=== PATIENT | female | born 2000 ===

== ENCOUNTER 2023-01-21 23:39 | Emergency (ER) | payer OTHER ==
[~2023-01-21] VITALS: Ht 170.1 cm; Wt 101.4 kg
[2023-01-21] MEDS ORDERED: FAMOTIDINE INJ 20MG/2ML VIAL IV STA (23:52)
[2023-01-21] MEDS ORDERED: NS IV 1000 ML 1,000 ML IV STA (23:52)
--- NOTE | 2023-01-21 23:52 | ED GI ---
General Stated Complaint: ABD PAIN|VOMITING Source of Information: Patient Exam Limitations: No Limitations History of Present Illness Date Seen by Provider: Jan 21, 2023 Time Seen by Provider: 23:43 Initial Comments 22-year-old female with no pertinent past medical history coming in due to upper abdominal discomfort and vomiting. Started a few days ago, worsening over the past 24 hours. Has only vomited a few times nonbloody nonbilious. No diarrhea, fever, chest pain, shortness of breath, dysuria, hematuria, or any other concerns. The pain does radiate to her flanks and lower back somewhat. Otherwise denying any other acute complaints. LMP was 2 weeks ago. Allergies and Home Medications Allergies Coded Allergies: No Known Drug Allergies (Unverified , 01/21/23) Patient Home Medication List Home Medication List Reviewed: Yes Doxycycline Hyclate (Doxycycline Hyclate) 100 Mg Tablet, 100 MG PO BID Prescribed by: FRANCO PEREZ on 01/22/2345 Metronidazole (Metronidazole) 500 Mg Tablet, 500 MG PO BID Prescribed by: FRANCO PEREZ on 01/22/236 Review of Systems Review of Systems Constitutional: No fever EENTM: No Symptoms Reported Respiratory: No Symptoms Reported Cardiovascular: No Symptoms Reported Gastrointestinal: See HPI Genitourinary: No Symptoms Reported Musculoskeletal: no symptoms reported Skin: no symptoms reported Psychiatric/Neurological: No Symptoms Reported Endocrine: No Symptoms Reported Hematologic/Lymphatic: No Symptoms Reported Past Tocylen-Wnwgtp-Vnvbmj Hx Patient Social History Tobacco Use?: No Past Medical History Surgeries: Yes Appendectomy Physical Exam Vital Signs Vital Signs - First Documented 01/21/23 23:39 Temp 36.9 Pulse 130 Resp 18 B/P (MAP) 128/86 (100) Pulse Ox 97 O2 Delivery Room Air Capillary Refill : Height/Weight/BMI Height: '" Weight: lbs. oz. kg; BMI Method: General Appearance: WD/WN, no apparent distress HEENT: PERRL/EOMI, normal ENT inspection, pharynx normal Neck: non-tender, full range of motion, supple, normal inspection Respiratory: chest non-tender, lungs clear, normal breath sounds, no respi ratory distress, no accessory muscle use Cardiovascular: no edema, no murmur, tachycardia Gastrointestinal: normal bowel sounds, non tender, soft; No distended, No guarding, No rebound Extremities: normal range of motion, non-tender, normal inspection, no pedal edema, no calf tenderness, normal capillary refill Back: normal inspection, no CVA tenderness Neurologic/Psychiatric: no motor/sensory deficits, alert, normal mood/affect Skin: normal color, warm/dry Progress/Results/Core Measures Results/Orders Lab Results Laboratory Tests Test 01/21/23 23:39 01/21/23 23:52 Range/Units Urine Color YELLOW Urine Clarity CLOUDY Urine pH 6.0 5-9 Urine Specific [place] 1.025 H 1.016-1.022 Urine Protein NEGATIVE NEGATIVE Urine Glucose (UA) NEGATIVE NEGATIVE Urine Ketones NEGATIVE NEGATIVE Urine Nitrite NEGATIVE NEGATIVE Urine Bilirubin NEGATIVE NEGATIVE Urine Urobilinogen 0.2 < = 1.0 MG/DL Urine Leukocyte Esterase 1+ H NEGATIVE Urine RBC (Auto) 2+ H NEGATIVE Urine RBC 0-2 /HPF Urine WBC 5-10 H /HPF Urine Squamous Epithelial Cells 5-10 /HPF Urine Crystals NONE /LPF Urine Bacteria MODERATE H /HPF Urine Casts PRESENT /LPF Urine Hyaline Casts 0-2 H /LPF Urine Mucus LARGE H /LPF Urine Other CLUE CELLS NOTED /HPF Urine Culture Indicated YES White Blood Count 12.4 H 4.3-11.0 10^3/uL Red Blood Count 5.19 H 3.80-5.11 10^6/uL Hemoglobin 14.4 11.5-16.0 g/dL Hematocrit 43 35-52 % Mean Corpuscular Volume 84 80-99 fL Mean Corpuscular Hemoglobin 28 25-34 pg Mean Corpuscular Hemoglobin Concent 33 32-36 g/dL Red Cell Distribution Width 12.5 10.0-14.5 % Platelet Count 345 130-400 10^3/uL Mean Platelet Volume 9.5 9.0-12.2 fL Immature Granulocyte % (Auto) 0 % Neutrophils (%) (Auto) 61 42-75 % Lymphocytes (%) (Auto) 28 12-44 % Monocytes (%) (Auto) 6 0-12 % Eosinophils (%) (Auto) 4 0-10 % Basophils (%) (Auto) 1 0-10 % Neutrophils # (Auto) 7.6 1.8-7.8 10^3/uL Lymphocytes # (Auto) 3.5 1.0-4.0 10^3/uL Monocytes # (Auto) 0.8 0.0-1.0 10^3/uL Eosinophils # (Auto) 0.5 H 0.0-0.3 10^3/uL Basophils # (Auto) 0.1 0.0-0.1 10^3/uL Immature Granulocyte # (Auto) 0.0 0.0-0.1 10^3/uL Sodium Level 137 135-145 MMOL/L Potassium Level 3.7 3.6-5.0 MMOL/L Chloride Level 103 98-107 MMOL/L Carbon Dioxide Level 21 21-32 MMOL/L Anion Gap 13 5-14 MMOL/L Blood Urea Nitrogen 10 7-18 MG/DL Creatinine 0.76 0.60-1.30 MG/DL Estimat Glomerular Filtration Rate 115 BUN/Creatinine Ratio 13 Glucose Level 209 H 70-105 MG/DL Calcium Level 9.2 8.5-10.1 MG/DL Corrected Calcium 8.8 8.5-10.1 MG/DL Total Bilirubin 0.2 0.1-1.0 MG/DL Aspartate Amino Transf (AST/SGOT) 10 5-34 U/L Alanine Aminotransferase (ALT/SGPT) 14 0-55 U/L Alkaline Phosphatase 75 40-136 U/L C-Reactive Protein 0.78 H <0.50 MG/DL Total Protein 7.8 6.4-8.2 GM/DL Albumin 4.5 3.2-4.5 GM/DL Lipase 18 8-78 U/L Influenza Type A (RT-PCR) Not Detected Not Detecte Influenza Type B (RT-PCR) Not Detected Not Detecte SARS-CoV-2 RNA (RT-PCR) Not Detected Not Detecte My Orders Orders - FRANCO PEREZ MD Urine Bedside (01/21/23 23:43) Ua Culture If Indicated (01/21/23 23:43) Cbc With Automated Diff (01/21/23 23:52) Comprehensive Metabolic Panel (01/21/23 23:52) Lipase (01/21/23 23:52) Influenza A And B By Pcr (01/21/23 23:52) Crp Fs (01/21/23 23:52) Ondansetron Injection (Ondansetron Inj (01/22/23 00:00) Ns Iv 1000 Ml (Ns Iv 1000 Ml) (01/21/23 23:52) Antacid Suspension (Antacid Suspension (01/22/23 00:00) Famotidine Injection (Famotidine Injec (01/21/23 23:52) Ed Iv/Invasive Line Start (01/21/23 23:52) Covid 19 Inhouse Test (01/21/23 23:52) Ketorolac Injection (Ketorolac Injection (01/22/23 00:00) Lidocaine 2% Viscous 15 Ml (Xylocaine Vi (01/22/23 00:00) Urine Culture (01/21/23 23:39) Neis Bret Dna Urine Test (01/22/23 00:30) Chlamydia Trachomatis Urine (01/22/23 00:30) Ceftriaxone Iv/Im (Ceftriaxone Iv/Im) (01/22/23 00:30) Metronidazole Tablet (Metronidazole Tabl (01/22/23 00:30) Doxycycline Hyclate Tablet (Doxycycline (01/22/23 00:30) Medications Given in ED Current Medications Medications Dose Ordered Sig/Delfina Route Start Time Stop Time Status Last Admin Dose Admin Al Hydrox/Mg Hydrox/Simethicone 30 ml ONCE ONCE PO 01/22/23 00:00 01/22/23 00:01 DC 01/22/23 00:11 30 ML Ceftriaxone Sodium 1000 mg/ Sodium Chloride 50 ml @ 100 mls/hr ONCE ONCE IV 01/22/23 00:30 01/22/23 00:59 01/22/23 00:42 100 MLS/HR Ketorolac Tromethamine 15 mg ONCE ONCE IVP 01/22/23 00:00 01/22/23 00:01 DC 01/22/23 00:11 15 MG Lidocaine HCl 15 ml ONCE ONCE PO 01/22/23 00:00 01/22/23 00:01 DC 01/22/23 00:11 15 ML Metronidazole 500 mg ONCE ONCE PO 01/22/23 00:30 01/22/23 00:31 DC 01/22/23 00:42 500 MG Ondansetron HCl 4 mg ONCE ONCE IVP 01/22/23 00:00 01/22/23 00:01 DC 01/22/23 00:11 4 MG Vital Signs/I&O 01/21/23 23:39 Temp 36.9 Pulse 130 Resp 18 B/P (MAP) 128/86 (100) Pulse Ox 97 O2 Delivery Room Air Progress Progress Note : Progress Note 22-year-old female with above history coming in due to abdominal discomfort and vomiting. ABCs were intact and vitals were stable on presentation other than she is tachycardic. An IV was placed and she was given a bolus of IV fluids as well as Toradol for pain control. She was given a GI cocktail as well as Zofran. Labs were significant for mild leukocytosis, slightly elevated CRP, normal creatinine, urinalysis with concerns for infection including bacterial vaginosis with clue cells. She be treated with ceftriaxone as well as oral antibiotics. On reassessment, abdominal exam once again reassuring with no signs of peritonitis. She has no focal tenderness anywhere, I think a CT would be unhelpful. Specifically, she has had her appendix out, and is not tender in her right lower quadrant, and is not tender in the right upper quadrant where her gallbladder is. I believe she is stable for discharge with outpatient follow-up. She was sent home with strict return precautions. Departure Impression Primary Impression: Cystitis Additional Impression: Bacterial vaginosis Disposition: HOME, SELF-CARE Condition: Stable Departure-Patient Inst. Decision time for Depature: 01:00 Patient Instructions: Acute Cystitis (DC) Add. Discharge Instructions: It appears like you have an infection in your bladder, often this can go back into the kidneys and cause the discomfort that you are feeling in both areas. Antibiotics and nausea medicines were sent to your pharmacy. Take ibuprofen and/or Tylenol as needed for pain. Scripts Ondansetron (Ondansetron Odt) 4 Mg Tab.rapdis 4 MG SL Q6H PRN for NAUSEA/VOMITING for 5 Days, #20 TAB Prov: FRANCO PEREZ MD 01/22/23 Metronidazole (Metronidazole) 500 Mg Tablet 500 MG PO BID for 7 Days, #14 TAB 0 Refills Prov: FRANCO PEREZ MD 01/22/23 Doxycycline Hyclate (Doxycycline Hyclate) 100 Mg Tablet 100 MG PO BID for 7 Days, #14 TAB 0 Refills Prov: FRANCO PEREZ MD 01/22/23 FRANCO PEREZ MD Jan 21, 2023 23:52
[2023-01-22] MEDS ORDERED: LIDOCAINE 2% VISCOUS 15 ML UDC PO ONE
[2023-01-22] MEDS ORDERED: ANTACID SUSPENSION 30 ML UDC PO ONE
[2023-01-22] MEDS ORDERED: ONDANSETRON INJECTION 4 MG/2 ML (SDV) IVP ONE
[2023-01-22] MEDS ORDERED: KETOROLAC INJ 15 MG/ML VIAL IVP ONE
[2023-01-22 00:02] LABS: BASOPHILS # (AUTO) 0.1 10^3/uL (0.0-0.1); BASOPHILS % (AUTO) 1 % (0-10); EOSINOPHILS # (AUTO) 0.5 10^3/uL (0.0-0.3); EOSINOPHILS % (AUTO) 4 % (0-10); HEMATOCRIT 43 % (35-52); HEMOGLOBIN 14.4 g/dL (11.5-16.0); LYMPHOCYTES # (AUTO) 3.5 10^3/uL (1.0-4.0); LYMPHOCYTES % (AUTO) 28 % (12-44); MEAN CORPUSCULAR HEMOGLOBIN 28 pg (25-34); MEAN CORPUSCULAR HGB CONC 33 g/dL (32-36); MEAN CORPUSCULAR VOLUME 84 fL (80-99); MEAN PLATELET VOLUME 9.5 fL (9.0-12.2); MONOCYTES # (AUTO) 0.8 10^3/uL (0.0-1.0); MONOCYTES % (AUTO) 6 % (0-12); NEUTROPHILS # (AUTO) 7.6 10^3/uL (1.8-7.8); NEUTROPHILS % (AUTO) 61 % (42-75); PLATELET COUNT 345 10^3/uL (130-400); WHITE BLOOD COUNT 12.4 10^3/uL (4.3-11.0)
[2023-01-22 00:08] LABS: BILIRUBIN,URINE NEGATIVE (NEGATIVE); CLARITY,URINE CLOUDY; COLOR,URINE YELLOW; GLUCOSE, URINE (UA) NEGATIVE (NEGATIVE); KETONES,URINE NEGATIVE (NEGATIVE); LEUKOCYTE ESTERASE ,URINE 1+ (NEGATIVE); NITRITE,URINE NEGATIVE (NEGATIVE); PROTEIN,URINE NEGATIVE (NEGATIVE)
[2023-01-22 00:25] LABS: BACTERIA,URINE MODERATE /HPF; HYALINE CASTS, URINE 0-2 /LPF; RBC,URINE 0-2 /HPF; URINE OTHER CLUE CELLS NOTED /HPF
[2023-01-22 00:29] LABS: ALBUMIN 4.5 GM/DL (3.2-4.5); BILIRUBIN,TOTAL 0.2 MG/DL (0.1-1.0); CALCIUM 9.2 MG/DL (8.5-10.1); CREATININE SERUM 0.76 MG/DL (0.60-1.30); POTASSIUM 3.7 MMOL/L (3.6-5.0); TOTAL PROTEIN 7.8 GM/DL (6.4-8.2)
[2023-01-22] MEDS ORDERED: cefTRIAXone IV/IM 1,000 MG in NS (IVPB) 50 ML 50 ML IV ONE (00:30)
[2023-01-22] MEDS ORDERED: metroNIDAZOLE 500 MG TABLET PO ONE (00:30)
[2023-01-22] MEDS ORDERED: DOXY100T2 PO (00:46)
[2023-01-22] MEDS ORDERED: METR-145 PO (00:46)
[2023-01-22] MEDS ORDERED: ONDA4TAB11 SL (00:48)
[2023-01-22 00:52] VITALS: BP 115/72
== END 2023-01-22 00:53 | disposition home or self-care (01) ==
LOC: ER FS 23:40
DX: N30.90 Cystitis, unspecified without hematuria (principal); N76.0 Acute vaginitis; R00.0 Tachycardia, unspecified; Z20.822 Contact with and (suspected) exposure to COVID-19
CPT/HCPCS: 36415; 80053; 81000; 83690; 84703; 85025; 86141; 87088; 87636

== ENCOUNTER 2023-01-27 22:58 | Emergency (ER) | payer OTHER ==
[~2023-01-27] VITALS: Ht 170.1 cm; Wt 103.2 kg
[~2023-01-27 22:58] MED LIST: DOXY100T2 PO; METR-145 PO; ONDA4TAB11 SL
[2023-01-27] MEDS ORDERED: KETOROLAC INJ 15 MG/ML VIAL IVP STA (23:13)
[2023-01-27] MEDS ORDERED: ONDANSETRON INJECTION 4 MG/2 ML (SDV) IVP STA (23:13)
[2023-01-27] MEDS ORDERED: NS IV 1000 ML 1,000 ML IV STA (23:13)
--- NOTE | 2023-01-27 23:17 | ED Back Pain ---
General Chief Complaint: Back Problems Stated Complaint: R SIDE RIB/BACK PAIN Source of Information: Patient History of Present Illness Date Seen by Provider: Jan 27, 2023 Time Seen by Provider: 23:03 Initial Comments 22-year-old female presenting with complaints of right upper quadrant and right flank pain that has been severe since Friday. She was seen last week for UTI and been taking antibiotics for that but felt like she was still having urinary symptoms. She sees blood every time that she wipes after urinating. She has been having nausea with the pain but has not vomited. She denies any change in her bowels. She has not had any fever or chills. She tried taking Tylenol for the pain most recently around 5 PM but feels like it was not helping her pain. Timing/Duration: 1-2 Days Severity: Severe Pain/Injury Location: Abdomen, Back Method of Injury: Unknown Associated Symptoms: No muscle spasms, No fever, No weakness, No numbness in legs/feet, No tingling in legs/feet, No sensory/motor loss, No lower back pain, No loss of bladder control, No loss of bowel control Allergies and Home Medications Allergies Coded Allergies: No Known Drug Allergies (Unverified , 01/21/23) Patient Home Medication List Home Medication List Reviewed: Yes Doxycycline Hyclate (Doxycycline Hyclate) 100 Mg Tablet, 100 MG PO BID Prescribed by: FRNACO PEREZ on 01/22/2345 Last Action: Reviewed Metronidazole (Metronidazole) 500 Mg Tablet, 500 MG PO BID Prescribed by: FRANCO PEREZ on 01/22/2345 Last Action: Reviewed Ondansetron (Ondansetron Odt) 4 Mg Tab.rapdis, 4 MG SL Q6H PRN for NAUSEA/VOMITING Prescribed by: FRANCO PEREZ on 01/22/2347 Last Action: Reviewed Phenazopyridine HCl (Pyridium) 100 Mg Tablet, 100 MG PO Q8H PRN for ABDOMINAL PAIN Prescribed by: DEVYN HSU on 01/28/2337 Review of Systems Constitutional: No chills, No fever EENTM: no symptoms reported Respiratory: no symptoms reported Cardiovascular: no symptoms reported Gastrointestinal: see HPI Genitourinary: see HPI : No Musculoskeletal: no symptoms reported Skin: no symptoms reported Psychiatric/Neurological: No Symptoms Reported Past Mljhtvu-Cqyimv-Wkgzvg Hx Past Medical History Surgeries: Yes Appendectomy Physical Exam Vital Signs Vital Signs - First Documented 01/27/23 23:02 Temp 36.8 Pulse 96 Resp 15 B/P (MAP) 135/73 (93) Pulse Ox 98 O2 Delivery Room Air Capillary Refill : Height, Weight, BMI Height: '" Weight: lbs. oz. kg; 35.00 BMI Method: General Appearance: No Apparent Distress, WD/WN Cardiovascular: Regular Rate, Rhythm, Normal Peripheral Pulses Respiratory: Chest Non Tender, Lungs Clear, Normal Breath Sounds Gastrointestinal: Normal Bowel Sounds, No Pulsatile Mass, Soft; No Distended, N o Guarding; Tenderness (Right upper quadrant and right flank) Neurologic/Psychiatric: Alert, Oriented x3 Skin: Normal Color, Warm/Dry Progress/Results/Core Measures Results/Orders Lab Results Laboratory Tests Test 01/27/23 23:05 01/27/23 23:15 Range/Units Urine Color YELLOW Urine Clarity SL CLOUDY Urine pH 7.0 5-9 Urine Specific [place] 1.015 L 1.016-1.022 Urine Protein NEGATIVE NEGATIVE Urine Glucose (UA) NEGATIVE NEGATIVE Urine Ketones NEGATIVE NEGATIVE Urine Nitrite NEGATIVE NEGATIVE Urine Bilirubin NEGATIVE NEGATIVE Urine Urobilinogen 0.2 < = 1.0 MG/DL Urine Leukocyte Esterase NEGATIVE NEGATIVE Urine RBC (Auto) 2+ H NEGATIVE Urine RBC 2-5 H /HPF Urine WBC RARE /HPF Urine Squamous Epithelial Cells 0-2 /HPF Urine Crystals NONE /LPF Urine Bacteria NEGATIVE /HPF Urine Casts NONE /LPF Urine Mucus NEGATIVE /LPF Urine Culture Indicated NO White Blood Count 11.9 H 4.3-11.0 10^3/uL Red Blood Count 4.49 3.80-5.11 10^6/uL Hemoglobin 12.5 11.5-16.0 g/dL Hematocrit 38 35-52 % Mean Corpuscular Volume 85 80-99 fL Mean Corpuscular Hemoglobin 28 25-34 pg Mean Corpuscular Hemoglobin Concent 33 32-36 g/dL Red Cell Distribution Width 12.7 10.0-14.5 % Platelet Count 264 130-400 10^3/uL Mean Platelet Volume 9.8 9.0-12.2 fL Immature Granulocyte % (Auto) 0 % Neutrophils (%) (Auto) 51 42-75 % Lymphocytes (%) (Auto) 34 12-44 % Monocytes (%) (Auto) 9 0-12 % Eosinophils (%) (Auto) 5 0-10 % Basophils (%) (Auto) 1 0-10 % Neutrophils # (Auto) 6.1 1.8-7.8 10^3/uL Lymphocytes # (Auto) 4.1 H 1.0-4.0 10^3/uL Monocytes # (Auto) 1.0 0.0-1.0 10^3/uL Eosinophils # (Auto) 0.6 H 0.0-0.3 10^3/uL Basophils # (Auto) 0.1 0.0-0.1 10^3/uL Immature Granulocyte # (Auto) 0.0 0.0-0.1 10^3/uL Sodium Level 139 135-145 MMOL/L Potassium Level 3.8 3.6-5.0 MMOL/L Chloride Level 104 98-107 MMOL/L Carbon Dioxide Level 24 21-32 MMOL/L Anion Gap 11 5-14 MMOL/L Blood Urea Nitrogen 12 7-18 MG/DL Creatinine 0.76 0.60-1.30 MG/DL Estimat Glomerular Filtration Rate 115 BUN/Creatinine Ratio 16 Glucose Level 107 H 70-105 MG/DL Calcium Level 9.2 8.5-10.1 MG/DL Corrected Calcium 9.3 8.5-10.1 MG/DL Total Bilirubin 0.2 0.1-1.0 MG/DL Aspartate Amino Transf (AST/SGOT) 11 5-34 U/L Alanine Aminotransferase (ALT/SGPT) 11 0-55 U/L Alkaline Phosphatase 59 40-136 U/L Total Protein 7.0 6.4-8.2 GM/DL Albumin 3.9 3.2-4.5 GM/DL Lipase 15 8-78 U/L My Orders Orders - DEVYN HSU MD Comprehensive Metabolic Panel (01/27/23 23:13) Lipase (01/27/23 23:13) Ua Culture If Indicated (01/27/23 23:13) Ed Iv/Invasive Line Start (01/27/23 23:13) Cbc With Automated Diff (01/27/23 23:13) Ct Abdomen/Pelvis Wo (01/27/23 23:13) Urine Bedside (01/27/23 23:13) Ns Iv 1000 Ml (Ns Iv 1000 Ml) (01/27/23 23:13) Ketorolac Injection (Ketorolac Injection (01/27/23 23:13) Ondansetron Injection (Ondansetron Inj (01/27/23 23:13) Phenazopyridine Tablet (Phenazopyridine (01/28/23 00:40) Rx-Dicyclomine Capsule (Rx-Bentyl Capsul (01/28/23 00:40) Vital Signs/I&O 01/27/23 23:02 Temp 36.8 Pulse 96 Resp 15 B/P (MAP) 135/73 (93) Pulse Ox 98 O2 Delivery Room Air Progress Progress Note #1: Progress Note Differential diagnosis includes kidney stone, pyelonephritis, cholecystitis, colitis, diverticulitis, gastritis. Obtain urinalysis for evaluating hydration and treat for infection. Bedside test. Establish peripheral IV access and send labs for complete blood count, comprehensive metabolic profile, lipase. CT scan of the abdomen and pelvis with out IV contrast to look for possible kidney stone or pathology to be causing her symptoms. Administer normal saline 1 L IV fluid bolus for h ydration, Toradol 15 mg IV for pain and inflammation, Zofran 4 mg IV for nausea. On review of her previous ED visit the urine culture had shown contaminated specimen with multiple skin antonieta present. She had been prescribed doxycycline and metronidazole but still felt like she was having UTI symptoms. Progress Note #2: Time: 23:44 Progress Note Bedside test was negative. On my personal review and interpretation of the CT scan of the abdomen and pelvis without IV contrast I did not appreciate any definite kidney stone on the right side. She did appear to have some mild hydronephrosis and inflammation around the kidney. Her gallbladder wall appeared to be a little thickened but her gallbladder was not fully distended. There is no pericholecystic fluid. Awaiting labs and radiology reading on the CT 0014 when updating patient about test results she reports that her pain was slightly improved but still there. Reviewed with her that her urine was not showing infection like it was when she was seen last week. There was small amount of blood present but no bacteria or infection. Her blood count was normal and was not showing signs of overwhelming infection or anemia. Her comprehensive metabolic profile showed no acute e lectrolyte abnormality. Lipase was low. Renal and hepatic function were normal as well. Reassured patient and findings were encouraging but did not give an answer for her pain. Awaiting radiologist report on the CT scan of the abdomen and pelvis without IV contrast. Progress Note #3: Time: 00:34 Progress Note I reviewed the radiologist report on the CT scan of the abdomen pelvis without IV contrast. The did not see any acute process within the abdomen or pelvis but felt that the urinary bladder wall was thickened which may be a good indication of cystitis. She does have some blood in her urine but was not having any bacteria and has been on doxycycline and metronidazole since the . We will trying Pyridium for pain and see if that helps to calm down her symptoms little bit more. If this is still residual irritation to the bladder and urinary tract system. Her labs were normal indicating no severe infection or obstruction. We will send with a few pain pills to try and help from a pain and inflammation standpoint. Counseled to follow a low-fat bland diet. If symptoms are worsening or not improving she may need additional testing beyond what is available in the emergency department. Given information for the [facility] clinic so that she could try and establish local care since she is going to school here from [place]. Diagnostic Imaging Diagonstic Imaging: CT Plain Films/CT/US/NM/MRI: abdomen, pelvis Comments CT scan of the abdomen pelvis without IV contrast Impression: The urinary bladder is thick-walled which may reflect cystitis in the correct clinical setting. Read by radiologist Dr. Ricki Demarco MD at [phone] and faxed at [phone] Reviewed: Reviewed [place] Study, Reviewed by Me Departure Impression Primary Impression: Acute right flank pain Additional Impression: Hematuria Qualified Codes: R31.9 - Hematuria, unspecified Disposition: 01 HOME, SELF-CARE Condition: Stable Departure-Patient Inst. Decision time for Depature: 00:37 Referrals: NO,LOCAL PHYSICIAN (PCP) Primary Care Physician [facility] Patient Instructions: Flank Pain ED, Blood in Urine (Hematuria), Adult ED Add. Discharge Instructions: Try to stay well-hydrated and drink plenty of fluids. Follow a low-fat bland diet. Take the Pyridium to try and help with irritation and spasms of the urinary tract and bladder. This will make your urine orangish red color but will help with the pain. For severe pain you could try taking the Bentyl or Dicyclomine. If symptoms or not improving or you are having worsening problems consider checking with the [facility] clinic as you may need testing beyond what is available through the emergency department. They may need to set you up for an ultrasound to take a look at your gallbladder and kidney. If your pain and symptoms persist they may also refer you to a urologist or see about having a scope done to look at your colon and stomach. All discharge instructions reviewed with patient and/or family. Voiced understanding. Scripts Phenazopyridine HCl (Pyridium) 100 Mg Tablet 100 MG PO Q8H PRN for ABDOMINAL PAIN for 2 Days, #6 TAB 0 Refills Prov: DEVYN HSU MD 01/28/23 Work/School Note: Work Release Form Date Seen in the Emergency Department: Jan 27, 2023 Return to Work: Jan 28, 2023 Restrictions: Return-No Fever (24hrs) Other Restrictions Listed Below: May use a stool and sit down when needed x 2 weeks Images Torso/Trunk 1 - Severe, Tenderness (Complaints of severe tenderness and pain with palpation of the right upper quadrant and right flank) DEVYN HSU MD Jan 27, 2023 23:17
[2023-01-27 23:40] LABS: BASOPHILS # (AUTO) 0.1 10^3/uL (0.0-0.1); BASOPHILS % (AUTO) 1 % (0-10); EOSINOPHILS # (AUTO) 0.6 10^3/uL (0.0-0.3); EOSINOPHILS % (AUTO) 5 % (0-10); HEMATOCRIT 38 % (35-52); HEMOGLOBIN 12.5 g/dL (11.5-16.0); LYMPHOCYTES # (AUTO) 4.1 10^3/uL (1.0-4.0); LYMPHOCYTES % (AUTO) 34 % (12-44); MEAN CORPUSCULAR HEMOGLOBIN 28 pg (25-34); MEAN CORPUSCULAR HGB CONC 33 g/dL (32-36); MEAN CORPUSCULAR VOLUME 85 fL (80-99); MEAN PLATELET VOLUME 9.8 fL (9.0-12.2); MONOCYTES % (AUTO) 9 % (0-12); NEUTROPHILS # (AUTO) 6.1 10^3/uL (1.8-7.8); NEUTROPHILS % (AUTO) 51 % (42-75); PLATELET COUNT 264 10^3/uL (130-400); WHITE BLOOD COUNT 11.9 10^3/uL (4.3-11.0)
[2023-01-27 23:42] LABS: BILIRUBIN,URINE NEGATIVE (NEGATIVE); CLARITY,URINE SL CLOUDY; COLOR,URINE YELLOW; GLUCOSE, URINE (UA) NEGATIVE (NEGATIVE); KETONES,URINE NEGATIVE (NEGATIVE); LEUKOCYTE ESTERASE ,URINE NEGATIVE (NEGATIVE); NITRITE,URINE NEGATIVE (NEGATIVE); PROTEIN,URINE NEGATIVE (NEGATIVE)
[2023-01-27 23:50] LABS: BACTERIA,URINE NEGATIVE /HPF; SQUAMOUS EPITHELIAL CELL,UR 0-2 /HPF; WBC,URINE RARE /HPF
[2023-01-28 00:03] LABS: BILIRUBIN,TOTAL 0.2 MG/DL (0.1-1.0); CALCIUM 9.2 MG/DL (8.5-10.1); CREATININE SERUM 0.76 MG/DL (0.60-1.30); POTASSIUM 3.8 MMOL/L (3.6-5.0)
[2023-01-28 00:04] LABS: ALBUMIN 3.9 GM/DL (3.2-4.5)
[2023-01-28] MEDS ORDERED: PHEN-639 PO (00:38)
[2023-01-28] MEDS ORDERED: RX-DICYCLOMINE 10 MG (BENTYL) CAP PPK#4 PO STA (00:40)
[2023-01-28] MEDS ORDERED: PHENAZOPYRIDINE 100 MG TABLET PO STA (00:40)
[2023-01-28 00:56] VITALS: BP 127/74
--- NOTE | 2023-01-28 06:14 | Diagnostic Imaging Report ---
EXAMINATION: CT abdomen and pelvis without contrast. TECHNIQUE: Multiple contiguous axial images were obtained through the abdomen and pelvis without the use of intravenous contrast. All CT scans use one or more of the following dose optimizing techniques: automated exposure control, MA and/or KvP adjustment based on patient size and exam type or iterative reconstruction. HISTORY: right flank pain, hematuria COMPARISON: None available. FINDINGS: Lung bases: The lung bases are clear. Solid organs: The liver is normal. The gallbladder is normal. There is no biliary ductal dilation. Pancreas is normal. Spleen is normal. Adrenal glands are normal. The kidneys are normal without visualized calculus or hydronephrosis. Bowel: The stomach and small bowel are normal without obstruction. The colon is normal. There are no secondary signs of acute appendicitis. Peritoneum: There is no intraperitoneal free fluid or free air. No suspicious lymphadenopathy. Vasculature: Normal without aneurysm. Musculoskeletal: No suspicious osseous lesion or compression fracture. Pelvis: The uterus and adnexa are normal. The urinary bladder is normal. IMPRESSION: 1. No visualized renal calculus or hydronephrosis. 2. No acute abnormality in the abdomen or pelvis. Dictated by: Dictated on workstation # [id number]
== END 2023-01-28 00:56 | disposition home or self-care (01) ==
LOC: EDUNIT# 22:58 → ER FS 23:00
DX: R10.11 Right upper quadrant pain (principal); R31.9 Hematuria, unspecified; R11.0 Nausea
CPT/HCPCS: 36415; 74176; 80053; 81000; 83690; 84703; 85025

== ENCOUNTER 2023-03-18 19:35 | Emergency (ER) | payer OTHER ==
[~2023-03-18] VITALS: Ht 167 cm; Wt 102.3 kg
[~2023-03-18 19:35] MED LIST changes: +PHEN-639 PO
[2023-03-18 19:41] VITALS: BP 132/82
[2023-03-18 20:14] LABS: BASOPHILS # (AUTO) 0.1 10^3/uL (0.0-0.1); BASOPHILS % (AUTO) 1 % (0-10); EOSINOPHILS # (AUTO) 0.4 10^3/uL (0.0-0.3); EOSINOPHILS % (AUTO) 4 % (0-10); HEMATOCRIT 41 % (35-52); HEMOGLOBIN 13.5 g/dL (11.5-16.0); LYMPHOCYTES # (AUTO) 0.8 10^3/uL (1.0-4.0); LYMPHOCYTES % (AUTO) 9 % (12-44); MEAN CORPUSCULAR HEMOGLOBIN 29 pg (25-34); MEAN CORPUSCULAR HGB CONC 33 g/dL (32-36); MEAN CORPUSCULAR VOLUME 85 fL (80-99); MEAN PLATELET VOLUME 10.1 fL (9.0-12.2); MONOCYTES # (AUTO) 0.7 10^3/uL (0.0-1.0); MONOCYTES % (AUTO) 8 % (0-12); NEUTROPHILS % (AUTO) 78 % (42-75); PLATELET COUNT 271 10^3/uL (130-400)
[2023-03-18] MEDS ORDERED: NS IV 1000 ML 1,000 ML IV SCH (20:15)
[2023-03-18] MEDS ORDERED: ONDANSETRON INJECTION 4 MG/2 ML (SDV) IVP ONE (20:15)
[2023-03-18 20:17] LABS: BILIRUBIN,URINE NEGATIVE (NEGATIVE); CLARITY,URINE SL CLOUDY; COLOR,URINE YELLOW; GLUCOSE, URINE (UA) NEGATIVE (NEGATIVE); KETONES,URINE NEGATIVE (NEGATIVE); LEUKOCYTE ESTERASE ,URINE NEGATIVE (NEGATIVE); NITRITE,URINE NEGATIVE (NEGATIVE); PROTEIN,URINE NEGATIVE (NEGATIVE)
[2023-03-18 20:24] LABS: BACTERIA,URINE NEGATIVE /HPF; RBC,URINE >100 /HPF; SQUAMOUS EPITHELIAL CELL,UR 0-2 /HPF
--- NOTE | 2023-03-18 20:31 | ED General ---
General Chief Complaint: General Problems/Pain Stated Complaint: DIZZY, BODY ACHES Nursing Triage Note: Patient to ER using crutches c/o feeling dizzy and "like i'm going to pass out." started approx 1500 today. Patient states she has lower back pain and left side pain. Patient states she finished her treatment for H. Pylori recently. Source of Information: Patient, RN Notes Reviewed Exam Limitations: No Limitations History of Present Illness Date Seen by Provider: Mar 18, 2023 Time Seen by Provider: 19:46 Initial Comments 22-year-old female patient presented POV with complaining of dizziness that started at 1500 today. Patient stated she had gradual onset of constant dizziness with feeling she is going to pass out and nausea without vomiting. Patient complaining of left-sided headache today and nonproductive cough for 2 weeks. Patient also complaining of right flank pain for 3 months and was seen in this emergency room and recently seen at urgent care and treated for H. pylori. Patient also has a stress fracture in her knee and using crutches. Patient denies sick contact, fever and chills, , sore throat and earache, chest pain, shortness of breath, urinary symptoms, diarrhea and constipation. Patient states that she is on control and has vaginal bleeding for the last 2 weeks. Patient is up-to-date with COVID vaccination. Patient had temperature of 99.6 at arrival to ER. Allergies and Home Medications Allergies Coded Allergies: No Known Drug Allergies (Unverified , 01/21/23) Patient Home Medication List Home Medication List Reviewed: Yes Doxycycline Hyclate (Doxycycline Hyclate) 100 Mg Tablet, 100 MG PO BID Prescribed by: FRANCO PEERZ on 01/22/2345 Metronidazole (Metronidazole) 500 Mg Tablet, 500 MG PO BID Prescribed by: FRANCO PEREZ on 01/22/2345 Naproxen (Naprosyn) 500 Mg Tablet, 500 MG PO BID PRN for pain Prescribed by: Marjan mireles on 03/18/232037 Ondansetron (Ondansetron Odt) 4 Mg Tab.rapdis, 4 MG SL Q6H PRN for NAUSEA/VOMITING Prescribed by: FRANCO PEREZ on 01/22/2347 Ondansetron (Ondansetron Odt) 4 Mg Tab.rapdis, 4 MG PO TID PRN for NAUSEA-1ST LINE Prescribed by: Marjan mireles on 03/18/232037 Phenazopyridine HCl (Pyridium) 100 Mg Tablet, 100 MG PO Q8H PRN for ABDOMINAL PAIN Prescribed by: DEVYN HSU on 01/28/23 0038 Review of Systems Review of Systems Constitutional: see HPI EENTM: no symptoms reported Respiratory: see HPI Cardiovascular: no symptoms reported Gastrointestinal: no symptoms reported Genitourinary: see HPI Musculoskeletal: see HPI Skin: no symptoms reported Psychiatric/Neurological: See HPI Hematologic/Lymphatic: No Symptoms Reported Immunological/Allergic: no symptoms reported All Other Systems Reviewed Negative Unless Noted: Yes Past Sdhstyf-Uojrpg-Nmuzji Hx Patient Social History Tobacco Use?: No Substance use?: No Alcohol Use?: No Immunizations Up To Date First/Initial COVID19 Vaccinat: Date ? Second COVID19 Vaccination Mahesh: Date ? Third COVID19 Vaccination Date: Date ? Past Medical History Surgery/Hospitalization HX: Appendectomy Surgeries: Yes Appendectomy Physical Exam Vital Signs Vital Signs - First Documented 03/18/23 19:41 Temp 37.4 Pulse 113 Resp 20 B/P (MAP) 132/82 (99) Pulse Ox 98 O2 Delivery Room Air Capillary Refill : Less Than 3 Seconds Height, Weight, BMI Height: '" Weight: lbs. oz. kg; 36.00 BMI Method: General Appearance: Mild Distress, Obese Eyes: Bilateral Eye Normal Inspection, Bilateral Eye PERRL HEENT: PERRL/EOMI, TMs Normal, Normal ENT Inspection, Pharynx Normal Neck: Full Range of Motion, Normal Inspection, Non Tender Respiratory: Chest Non Tender, Lungs Clear, Normal Breath Sounds Cardiovascular: No Edema, No Gallop, Tachycardia Gastrointestinal: Normal Bowel Sounds, Non Tender, Soft Back: Normal Inspection Extremity: Normal Inspection Neurologic/Psychiatric: Alert, Oriented x3, No Motor/Sensory Deficits Skin: Normal Color, Warm/Dry Focused Exam Lactate Level 03/18/23 19:54: Lactic Acid Level 0.61 Lactic Acid Level Laboratory Tests Test 03/18/23 19:54 Lactic Acid Level 0.61 MMOL/L (0.50-2.00) Progress/Results/Core Measures Suspected Sepsis SIRS Temperature: Pulse: 113 Respiratory Rate: 20 Laboratory Tests 03/18/23 19:54: White Blood Count 9.0 Blood Pressure 132 /82 Mean: 99 03/18/23 19:54: Lactic Acid Level 0.61 Laboratory Tests 03/18/23 19:54: Creatinine 0.71, Platelet Count 271, Total Bilirubin 0.4 Results/Orders Lab Results Laboratory Tests Test 03/18/23 19:45 03/18/23 19:54 03/18/23 20:00 Range/Units Urine Color YELLOW Urine Clarity SL CLOUDY Urine pH 7.0 5-9 Urine Specific [place] >=1.030 1.016-1.022 Urine Protein NEGATIVE NEGATIVE Urine Glucose (UA) NEGATIVE NEGATIVE Urine Ketones NEGATIVE NEGATIVE Urine Nitrite NEGATIVE NEGATIVE Urine Bilirubin NEGATIVE NEGATIVE Urine Urobilinogen 1.0 < = 1.0 MG/DL Urine Leukocyte Esterase NEGATIVE NEGATIVE Urine RBC (Auto) 3+ H NEGATIVE Urine RBC >100 H /HPF Urine WBC NONE /HPF Urine Squamous Epithelial Cells 0-2 /HPF Urine Crystals NONE /LPF Urine Bacteria NEGATIVE /HPF Urine Casts NONE /LPF Urine Mucus NEGATIVE /LPF Urine Culture Indicated CULTURE PENDING White Blood Count 9.0 4.3-11.0 10^3/uL Red Blood Count 4.74 3.80-5.11 10^6/uL Hemoglobin 13.5 11.5-16.0 g/dL Hematocrit 41 35-52 % Mean Corpuscular Volume 85 80-99 fL Mean Corpuscular Hemoglobin 29 25-34 pg Mean Corpuscular Hemoglobin Concent 33 32-36 g/dL Red Cell Distribution Width 12.6 10.0-14.5 % Platelet Count 271 130-400 10^3/uL Mean Platelet Volume 10.1 9.0-12.2 fL Immature Granulocyte % (Auto) 0 % Neutrophils (%) (Auto) 78 H 42-75 % Lymphocytes (%) (Auto) 9 L 12-44 % Monocytes (%) (Auto) 8 0-12 % Eosinophils (%) (Auto) 4 0-10 % Basophils (%) (Auto) 1 0-10 % Neutrophils # (Auto) 7.0 1.8-7.8 10^3/uL Lymphocytes # (Auto) 0.8 L 1.0-4.0 10^3/uL Monocytes # (Auto) 0.7 0.0-1.0 10^3/uL Eosinophils # (Auto) 0.4 H 0.0-0.3 10^3/uL Basophils # (Auto) 0.1 0.0-0.1 10^3/uL Immature Granulocyte # (Auto) 0.0 0.0-0.1 10^3/uL Sodium Level 136 135-145 MMOL/L Potassium Level 3.8 3.6-5.0 MMOL/L Chloride Level 104 98-107 MMOL/L Carbon Dioxide Level 20 L 21-32 MMOL/L Anion Gap 12 5-14 MMOL/L Blood Urea Nitrogen 11 7-18 MG/DL Creatinine 0.71 0.60-1.30 MG/DL Estimat Glomerular Filtration Rate 125 BUN/Creatinine Ratio 15 Glucose Level 105 70-105 MG/DL Lactic Acid Level 0.61 0.50-2.00 MMOL/L Calcium Level 9.1 8.5-10.1 MG/DL Corrected Calcium 9.0 8.5-10.1 MG/DL Total Bilirubin 0.4 0.1-1.0 MG/DL Aspartate Amino Transf (AST/SGOT) 19 5-34 U/L Alanine Aminotransferase (ALT/SGPT) 21 0-55 U/L Alkaline Phosphatase 61 40-136 U/L Troponin I < 0.30 <0.30 NG/ML Total Protein 7.7 6.4-8.2 GM/DL Albumin 4.1 3.2-4.5 GM/DL Influenza Type A (RT-PCR) Not Detected Not Detecte Influenza Type B (RT-PCR) Not Detected Not Detecte SARS-CoV-2 RNA (RT-PCR) Detected H Not Detecte My Orders Orders - MARJAN MIRELES MD Cbc And Automated Diff (03/18/23 20:02) Comprehensive Metabolic Panel (03/18/23 20:02) Urinalysis (03/18/23 20:02) Urine Culture (03/18/23 20:02) Chest 1 View Ap/Pa Only (03/18/23 20:02) Ed Iv/Invasive Line Start (03/18/23 20:02) Lactic Acid Analyzer (03/18/23 20:02) Ns Iv 1000 Ml (Ns Iv 1000 Ml) (03/18/23 20:15) Covid 19 Inhouse Test (03/18/23 20:02) Influenza A And B By Pcr (03/18/23 20:02) Ondansetron Injection (Ondansetron Inj (03/18/23 20:15) Troponin I Fs (03/18/23 20:02) Ketorolac Injection (Ketorolac Injection (03/18/23 21:00) Medications Given in ED Current Medications Medications Dose Ordered Sig/Delfina Route Start Time Stop Time Status Last Admin Dose Admin Ondansetron HCl 4 mg ONCE ONCE IVP 03/18/23 20:15 03/18/23 20:16 DC 03/18/23 20:10 4 MG Vital Signs/I&O 03/18/23 19:41 Temp 37.4 Pulse 113 Resp 20 B/P (MAP) 132/82 (99) Pulse Ox 98 O2 Delivery Room Air Capillary Refill : Less Than 3 Seconds Blood Pressure Mean: 99 Progress Note : Progress Note Differential diagnosis: COVID infection, UTI, dehydration, electrolyte imbalance 22-year-old female patient presented with complaining of dizziness and nausea this afternoon. Patient had temperature of 99.6. Patient had unremarkable physical exam except for mild distress and tachycardia. CBC, CMP, lactic acid, troponin, UA, COVID and influenza, chest x-ray was ordered and reviewed by me and showed positive COVID test. Patient treated with IV fluid and Zofran, patient complaining of increasing headache at time of discharge and Toradol was ordered. Patient was advised to quarantine at home for 5 days and prescription for Zofran and Naprosyn was given Diagnostic Imaging Diagonstic Imaging: Xray Plain Films/CT/US/NM/MRI: chest Comments 1 view chest x-ray interpreted by me and did not show acute finding. 1 view chest x-ray interpreted by radiologist and reviewed by me and showed: [facility], [place] NAME: [facility]ENC[facility] REC#: [id number] PT STATUS: REG ER : 2002 PHYSICIAN: MARJNA MIRELES MD ADMIT DATE: 03/18/23/ER FS Draft Date of Exam:03/18/23 CHEST 1 VIEW AP/PA ONLY EXAMINATION: Chest 1 view HISTORY: Dizziness COMPARISON: None available. FINDINGS: Heart size and pulmonary vasculature are normal. The lungs are clear without consolidation, pleural effusion, or pneumothorax. The osseous structures are intact. IMPRESSION: 1. No acute radiographic abnormality in the chest. Dictated on workstation # [id number] Dict: 03/18/232036 Trans: 03/18/232037 [facility] [id number] Interpreted by: GRZEGORZ NAZARIO DO Electronically signed by: Departure Impression Primary Impression: COVID-19 virus infection Additional Impression: Dizziness Disposition: HOME, SELF-CARE Condition: Improved Departure-Patient Inst. Decision time for Depature: 20:49 Referrals: NO,LOCAL PHYSICIAN (PCP/Family) Primary Care Physician Patient Instructions: COVID-19 (DC) Scripts Ondansetron (Ondansetron Odt) 4 Mg Tab.rapdis 4 MG PO TID PRN for NAUSEA-1ST LINE, #10 TAB Prov: MARJAN MIRELES MD 03/18/23 Naproxen (Naprosyn) 500 Mg Tablet 500 MG PO BID PRN for pain, #20 TAB Prov: MARJAN MIRELES MD 03/18/23 Work/School Note: School/Childcare Release Date Seen in the Emergency Department: Mar 18, 2023 Time Dismissed from Emergency Department: 20:52 Return to School: Mar 23, 2023 MARJAN MIRELES MD Mar 18, 2023 20:31
[2023-03-18 20:32] LABS: POTASSIUM 3.8 MMOL/L (3.6-5.0)
[2023-03-18 20:35] LABS: BILIRUBIN,TOTAL 0.4 MG/DL (0.1-1.0); CALCIUM 9.1 MG/DL (8.5-10.1); CARBON DIOXIDE 20 MMOL/L (21-32); CHLORIDE 104 MMOL/L (98-107); GLUCOSE 105 MG/DL (70-105); SODIUM 136 MMOL/L (135-145); TOTAL PROTEIN 7.7 GM/DL (6.4-8.2)
[2023-03-18] MEDS ORDERED: ONDA4TAB11 PO (20:38)
[2023-03-18] MEDS ORDERED: NAPR-1071 PO (20:38)
--- NOTE | 2023-03-18 20:39 | Diagnostic Imaging Report ---
EXAMINATION: Chest 1 view HISTORY: Dizziness COMPARISON: None available. FINDINGS: Heart size and pulmonary vasculature are normal. The lungs are clear without consolidation, pleural effusion, or pneumothorax. The osseous structures are intact. IMPRESSION: 1. No acute radiographic abnormality in the chest. Dictated by: Dictated on workstation # [id number]
[2023-03-18 20:42] LABS: ALANINE AMINOTRANSFERASE 21 U/L (0-55); ALBUMIN 4.1 GM/DL (3.2-4.5); ALKALINE PHOSPHATASE 61 U/L (40-136); BUN/CREATININE RATIO 15; CREATININE SERUM 0.71 MG/DL (0.60-1.30); GFR ESTIMATED 125
[2023-03-18] MEDS ORDERED: KETOROLAC INJ 30 MG/ML VIAL IVP ONE (21:00)
== END 2023-03-18 20:55 | disposition home or self-care (01) ==
LOC: EDUNIT# 19:35 → ER FS 19:37
DX: U07.1 COVID-19 (principal); R42 Dizziness and giddiness; R11.0 Nausea; R51.9 Headache, unspecified; R05.9 Cough, unspecified; E66.9 Obesity, unspecified; Z68.36 Body mass index [BMI] 36.0-36.9, adult
CPT/HCPCS: 36415; 71045; 80053; 81000; 83605; 84484; 85025; 87088; 87636; 96361; 96374; 96375

== ENCOUNTER 2023-03-28 00:07 | Emergency (ER) | payer OTHER ==
[~2023-03-28] VITALS: Ht 167 cm; Wt 105.0 kg
[~2023-03-28 00:07] MED LIST changes: +NAPR-1071 PO; +ONDA4TAB11 PO
[2023-03-28 00:17] VITALS: BP 139/89
[2023-03-28] MEDS ORDERED: diphenhydrAMINE 25 MG TABLET PO ONE (00:30)
[2023-03-28] MEDS ORDERED: dexAMETHasone INJ 10 MG/ML 1 ML VIAL IM ONE (00:30)
[2023-03-28] MEDS ORDERED: RT-Ipratropium/Albuterol NEB 3 ML VIAL INH ONE (00:30)
[2023-03-28] MEDS ORDERED: FAMOTIDINE 20 MG TABLET PO ONE (00:30)
--- NOTE | 2023-03-28 01:46 | ED General ---
General Chief Complaint: Respiratory Problems Stated Complaint: SOA,CHEST TIGHTNESS,COUGH Nursing Triage Note: Patient to ER via POV ambulatory to room FS04 c/o shortness of breath. 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 "felt like my throat was closing." History of Present Illness Date Seen by Provider: Mar 28, 2023 Time Seen by Provider: 12:17 Initial Comments 22-year-old female is here with complaints of shortness of breath, tingling in her throat, which began earlier today. Patient reports having hives yesterday. Patient does not have a history of asthma or seasonal allergies. Patient has not taken any new medications. She does not have any food allergies that she knows of. Denies chest pain, nausea and vomiting, abdominal pain, palpitations, oral swelling, facial swelling, fever and chills. Allergies and Home Medications Allergies Coded Allergies: No Known Drug Allergies (Unverified , 01/21/23) Patient Home Medication List Home Medication List Reviewed: Yes Doxycycline Hyclate (Doxycycline Hyclate) 100 Mg Tablet, 100 MG PO BID Prescribed by: FRANCO PEREZ on 01/22/2345 Metronidazole (Metronidazole) 500 Mg Tablet, 500 MG PO BID Prescribed by: FRANCO PEREZ on 01/22/2345 Naproxen (Naprosyn) 500 Mg Tablet, 500 MG PO BID PRN for pain Prescribed by: Marjan beasley on 03/18/232037 Ondansetron (Ondansetron Odt) 4 Mg Tab.rapdis, 4 MG SL Q6H PRN for NAUSEA/VOMI TING Prescribed by: FRANCO PEREZ on 01/22/2347 Ondansetron (Ondansetron Odt) 4 Mg Tab.rapdis, 4 MG PO TID PRN for NAUSEA-1ST LINE Prescribed by: Marjan beasley on 03/18/232037 Phenazopyridine HCl (Pyridium) 100 Mg Tablet, 100 MG PO Q8H PRN for ABDOMINAL PAIN Prescribed by: DEVYN HSU on 01/28/2337 Review of Systems Review of Systems Constitutional: no symptoms reported EENTM: other (Tingling in throat) Respiratory: short of breath Cardiovascular: no symptoms reported Gastrointestinal: no symptoms reported Genitourinary: no symptoms reported Musculoskeletal: no symptoms reported Skin: no symptoms reported Psychiatric/Neurological: No Symptoms Reported Past Jwhwiyd-Orlott-Omokkq Hx Patient Social History Tobacco Use?: No Substance use?: No Alcohol Use?: No Immunizations Up To Date First/Initial COVID19 Vaccinat: Date ? Second COVID19 Vaccination Mahesh: Date ? Third COVID19 Vaccination Date: Date ? Past Medical History Surgery/Hospitalization HX: Appendectomy Surgeries: Yes Appendectomy Physical Exam Vital Signs Vital Signs - First Documented Capillary Refill : Less Than 3 Seconds Height, Weight, BMI Height: '" Weight: lbs. oz. kg; 37.00 BMI Method: General Appearance: No Apparent Distress HEENT: PERRL/EOMI, TMs Normal, Normal ENT Inspection, Pharynx Normal Neck: Full Range of Motion, Normal Inspection Respiratory: Chest Non Tender, Lungs Clear, Normal Breath Sounds, No Accessory Muscle Use Cardiovascular: Regular Rate, Rhythm Gastrointestinal: Normal Bowel Sounds, Non Tender, Soft Neurologic/Psychiatric: Alert, Oriented x3 Skin: Normal Color Progress/Results/Core Measures Suspected Sepsis SIRS Temperature: Pulse: 96 Respiratory Rate: 18 Blood Pressure 139 /89 Mean: 106 Results/Orders My Orders Orders - SERVANDO LEDBETTER MD Ipratropium/Albuterol Inh Soln (Ipratrop (03/28/23 00:30) Svn Small Volume Nebulizer (03/28/23 00:27) Diphenhydramine Tablet (Diphenhydramine (03/28/23 00:30) Dexamethasone Injection (Dexamethasone (03/28/23 00:30) Famotidine Tablet (Famotidine Tablet) (03/28/23 00:30) Medications Given in ED Current Medications Medications Dose Ordered Sig/Delfina Route Start Time Stop Time Status Last Admin Dose Admin Albuterol/ Ipratropium 3 ml ONCE ONCE INH 03/28/23 00:30 03/28/23 00:31 DC 03/28/23 00:37 3 ML Dexamethasone Sodium Phosphate 10 mg ONCE ONCE IM 03/28/23 00:30 03/28/23 00:31 DC 03/28/23 00:37 10 MG Diphenhydramine HCl 25 mg ONCE ONCE PO 03/28/23 00:30 03/28/23 00:31 DC 03/28/23 00:36 25 MG Famotidine 20 mg ONCE ONCE PO 03/28/23 00:30 03/28/23 00:31 DC 03/28/23 00:37 20 MG Vital Signs/I&O 03/28/23 03/28/23 00:17 00:17 Temp 37.1 Pulse 96 Resp 18 B/P (MAP) 139/89 (106) Pulse Ox 99 O2 Delivery Room Air Room Air Capillary Refill : Less Than 3 Seconds Blood Pressure Mean: 106 Progress Note : Progress Note 1. ALLERGIC REACTION: - Dexa 10mg im/ Pepcid 20mg /Benadryl 25mg oral/ Duo Neb STAT. Pt's symptoms improved with this. - Prescription given for Albuterol inhaler, to be taken every 4 hours as needed for SOB - Prescription for Prednisone 50mg daily for 3 days - Advised to take over the counter Benadryl 25mg at night. Do not take Benadryl while driving. - Follow up with PCP within 7 days. Allergy testing advised. -The patient was seen in the ED, and treated appropriately to presentation at a specific point in time. Patient is informed that there is a possibility that disease and illness can evolve and change in acuity rapidly or slowly after patient is discharged from the ER. Precautionary advice given to the patient for immediate return to ER if symptoms worsen or do not resolve, and to seek emergency care sooner rather than later. Pt also advised on the importance of PCP follow up and compliance with management and follow up plan with PCP and/or specialist, as this is part of the management plan. Pt verbally expressed understanding. Departure Impression Primary Impression: Allergic reaction Disposition: 01 HOME, SELF-CARE Condition: Stable Departure-Patient Inst. Referrals: NO,LOCAL PHYSICIAN (PCP/Family) Primary Care Physician Patient Instructions: Allergic Reaction ED, Allergy skin testing Add. Discharge Instructions: - Prescription given for Albuterol inhaler, to be taken every 4 hours as needed for SOB - Prescription for Prednisone 50mg daily for 3 days - Advised to take over the counter Benadryl 25mg at night. Do not take Benadryl while driving. - Follow up with PCP within 7 days. Allergy testing advised. All discharge instructions reviewed with patient and/or family. Voiced understanding. Scripts Prednisone (Prednisone) 50 Mg Tab 50 MG PO DAILY for 3 Days, #3 TAB Prov: SERVANDO LEDBETTER MD 03/28/23 Albuterol Sulfate (VENTOLIN HFA) 1 Puff Puff 2 PUFF INH Q4H for Shortness of Breath for 30 Days, #1 EA 1 PUFF = 90 MCG Prov: SERVANDO LEDBETTER MD 03/28/23 SERVANDO LEDBETTER MD Mar 28, 2023 01:46
[2023-03-28] MEDS ORDERED: PRD50T PO (01:56)
[2023-03-28] MEDS ORDERED: RT-ALBUINH INH (01:56)
== END 2023-03-28 02:00 | disposition home or self-care (01) ==
LOC: EDUNIT# 00:07 → ER FS 00:08
DX: T78.40XA Allergy, unspecified, initial encounter (principal); X58.XXXA Exposure to other specified factors, initial encounter
CPT/HCPCS: 94640; 96372